=== PATIENT | male | born 1975 | race Hispanic/Latino ===

== ENCOUNTER 2016-06-24 00:26 | Emergency (ER) | payer OTHER ==
[2016-06-24 00:37] VITALS: BP 119/70; PULSE 67; RESP 16; O2SAT 99
--- NOTE | 2016-06-24 00:58 | ED.REPORT ---
HPI-Headache Date of Service Jun 24, 2016 ED Provider: Jhonny Carrasquillo MD Patient is a 41 year old male who presents to the ED complaining of a severe headache that began 3 hours prior to arrival. 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 Patient states that he drove home and took a shower, but this did not improve his symptoms. He then took several tablets of DayQuil, with no improvement. Patient states that he never has headaches and that this is quite unusual for him. Patient reports that yesterday he also felt unwell, describing the sensation that something was throbbing behind his eye while playing golf. He also experienced abdominal pain followed by an episode of nausea and vomiting 1x. However, he has not had these symptoms today. He reports not feeling 100% for several days. 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 Patient did not have a seasonal influenza shot this year. He admits that he quit smoking cigarettes 2 months ago. Nursing Notes Stated Complaint: HEADACHE Chief Complaint: Neuro Symptoms/ Deficits Nursing Notes Reviewed: Yes Allergies: Coded Allergies: No Known Allergies (Unverified , 06/24/16) General Time Seen by MD: 00:54 Chief Complaint Headache Hx Obtained From: Patient Arrived By: Walk-in Sudden in Onset?: No Onset Occurred: 1 - 4 hours ago Symptom Duration: Since onset Location: : Generalized Quality: Painful Severity: Current: Severe Severity: Maximum: Severe Recent Healthcare: No recent doctor visit, No recent hospitalization Similar Sx Previous: No Past Medical History Past Medical History none reported Past Surgical History none reported Smoking History Former Smoker Social History Other Social History: Good social support, , Local resident Ambulatory Status Independent Review of Systems GI: Reports: Abdominal pain, Nausea, Vomiting Musculoskeletal: Reports: Myalgia Neurologic: Reports: Headache, Denies: Change LOC Complete sys rev & neg: except as marked. Physical Exam Initial Vital Signs Vital Signs (First) Date Time Temp Pulse Resp B/P Pulse Ox O2 Delivery O2 Flow Rate FiO2 06/24/16 00:37 37 67 16 119/70 99 Room Air Initial VS: Reviewed, Vital signs normal ENT: Mucous membranes moist, Conjunctiva normal, No scleral icterus Respiratory: Breath sounds normal, Clear to auscultation, No respiratory distress Cardiovascular: Regular rate & rhythm, Heart sounds normal Abdomen / GI: Soft, Non-tender Extremities: Vascular intact, Neuro intact Skin: Warm, Dry, No cyanosis Psychiatric: Mood/affect normal, Behavior normal, Normal thought content General/Constitutional: Awake, Alert, No acute distress Head / Eyes: Atraumatic, Normocephalic, PERRL Neck: Supple, Full range of motion Neurologic: Oriented X3, Speech NL, No motor deficits, No sensory deficits, CN II - XII intact Interpretation & Diagnostics Interpretation & Diagnostics: NEGATIVE FOR INFLUENZA TYPE A AND B Lab Results Interpretation Result Diagram: 06/24/16 0122 06/24/16 0122 Test 06/24/16 01:22 White Blood Count 8.7th/mm3 (3.8-10.1) Red Blood Count 4.19mil/mm3 (4.40-5.80) Hemoglobin 12.9g/dL (13.8-17.2) Hematocrit 37.6% (41.0-50.0) Mean Corpuscular Volume 89.7fL (81-100) Mean Corpuscular Hemoglobin 30.8pg (27.0-35.0) Mean Corpuscular Hemoglobin Concent 34.3% (32.0-37.0) Red Cell Distribution Width 13.3% (12.3-15.4) Platelet Count 274bil/L (150-400) Neutrophils (%) (Auto) 62.1% (40-74) Lymphocytes (%) (Auto) 26.4% (14-46) Monocytes (%) (Auto) 8.7% (4-12) Eosinophils (%) (Auto) 2.3% (0-5) Basophils (%) (Auto) 0.3% (0-3) Sodium Level 136mEq/L (134-144) Potassium Level 3.8mEq/L (3.5-5.2) Chloride Level 98mEq/L (97-108) Carbon Dioxide Level 28mmol/L (18-29) Blood Urea Nitrogen 11mg/dL (6-24) Creatinine 1.00mg/dL (0.76-1.27) Estimat Glomerular Filtration Rate 87mL/min (>59) Glucose Level 120mg/dL (60-99) Calcium Level 8.7mg/dL (8.5-10.1) Magnesium Level 2.0mg/dL (1.6-2.6) Total Bilirubin 0.2mg/dL (0.0-1.2) Aspartate Amino Transf (AST/SGOT) 25U/L (0-50) Alanine Aminotransferase (ALT/SGPT) 31U/L (0-44) Alkaline Phosphatase 62U/L (25-150) Total Protein 6.9g/dL (6.4-8.4) Albumin 4.1g/dL (3.4-5.0) Hold Jay Top Tube Received (Received) Lab values outside NL range: no clinical significance. CT Head Interpretation CONCLUSION: Negative non-contrast CT scan of the head; no acute intracranial abnormality. Radiologist: Jose Rafael Lemus MD 06/24/2016 - 1:48:27 AM PST Study: Head CT no contrast Interpretation / Wet Read by: Interpret - Radiologist Re-Eval/Medical Decision Med Decision/Clinical Course 41-year-old male with a flulike illness and headache. He very seldom gets headaches. Laboratory evaluation is unremarkable, including negative influenza testing. Head CT scan is normal. He got good pain relief with nonnarcotic medications. I do not suspect serious illness such as meningitis or subarachnoid hemorrhage. He is being discharged home in improved condition. Source of Hx: Old records Re-Evaluation/Progress : Time of Eval: 03:20 )( Patient Status: Condition improved Re-Evaluation/Progress Note: Patient states that his headache is improved. His CT scan was negative. Discussed the results of his labs. Flu was negative. Patient understands and agrees with the plan to be discharged home. Discharge instructions and follow-up discussed. All questions were addressed. Return to the ED warnings given. Counseled Regarding: Diagnosis, Lab results, Need for follow-up, When/why to return to ED Discharge & Departure Impression: Primary Impression: Headache Headache type: unspecified Headache chronicity pattern: acute headache Intractability: not intractable Qualified Code: R51 - Headache Additional Impression: Flu-like symptoms Disposition: Home Discharge Condition All VS Reviewed: Yes Condition: Stable Patient Instructions: Acute Headache (ED) Additional Instructions: Your labs and head CT scan are normal. The influenza test is negative, but it seems likely that you have a similar viral infection and flulike illness. There is no evidence of serious cause for your headache. Home to sleep. Drink plenty of fluids. Contact me at [phone] between the hours of 9 PM and 6 AM the next 2 nights of you have any questions or concerns. You need to contact her insurance company to arrange for a follow-up family doctor. Referrals: [facility] Scribe Attestation Portions of this note were transcribed by Maria L Painting. I, Dr. Carrasquillo personally performed the history, physical exam and medical decision-making; I reviewed and confirmed the accuracy of the information in the transcribed note. Signed by: Kiana Craven, 06/24/2016 0330 Jhonny Carrasquillo MD Jun 24, 2016 00:58 Maria L Painting Jun 24, 2016 01:10
[2016-06-24] MEDS ORDERED: 0.9% Sodium Chloride 1,000 ML IV ONE (01:12)
[2016-06-24] MEDS ORDERED: Ondansetron 2 mg/mL 2 mL Inj IVPUSH ONE (01:15)
[2016-06-24 01:30] LABS: BASOPHILS % (AUTO) 0.3 % (0-3); EOSINOPHILS % (AUTO) 2.3 % (0-5); MONOCYTES % (AUTO) 8.7 % (4-12); Mean Corpuscular Hemoglobin 30.8 pg (27.0-35.0); Mean Corpuscular Volume 89.7 fL (81-100); NEUTROPHILS % (AUTO) 62.1 % (40-74); Platelet Count 274 bil/L (150-400)
[2016-06-24 03:35] VITALS: BP 115/59; PULSE 66; RESP 16; O2SAT 98
--- NOTE | 2016-06-24 08:05 | DRSVH ---
PROCEDURE: CT BRAIN WITHOUT CONTRAST ([id number]) INDICATIONS: unusual headache TECHNIQUE: Noncontrast 4.5 mm thick angled axial sections acquired from the foramen magnum to the vertex, with c oronal reformats. COMPARISON: None. FINDINGS: Preliminary report by overnight stocker radiology Image quality: Excellent. CSF spaces: Basal cisterns are patent. No extra-axial fluid collections. Ventricles are normal in size and shape. Brain: No midline shift. No intracranial masses or hemorrhage. Worthy-white matter interface is norm al. Skull and face: Calvarium and visualized facial bones are intact, without suspicious lesions. Sinuses: Visualized sinuses and mastoids are clear. IMPRESSION: 1. Normal CT brain scan. No evidence of subarachnoid hemorrhage. Findings are concordant with the preliminary report Dictated by: Louis Taylor M.D. on 06/24/2016 at 8:02 Approved by: Louis Taylor M.D. on 06/24/2016 at 8:03
== END 2016-06-24 03:37 | disposition home or self-care (01) ==
LOC: SED 00:26
DX: R51 Headache (principal); R10.9 Unspecified abdominal pain; R11.2 Nausea with vomiting, unspecified; Z87.891 Personal history of nicotine dependence
CPT/HCPCS: 36415; 70450; 80053; 83735; 85025; 87804; 96361; 96374; 96375; 99285; J2405; J7030